=== PATIENT | female | born 1945 | race Caucasian/White ===

== ENCOUNTER → 2018-09-06 12:11 | Outpatient (CLI) | payer MEDICARE, SELFPAY ==
--- NOTE | 2018-09-06 12:14 | DI.RAD.S_ITS ---
PROCEDURE: XR HIP W PEL IF DONE LT MIN 4V INDICATIONS: left hip pain TECHNIQUE: AP pelvis with lateral view(s) of the bilateral hip(s). COMPARISON: [facility], CR, HIP COMP MIN 2VW (RT), 11/11/2011, 9:07. [facility], CT, CT LUMBAR SPINE WO CONTRAST, 08/12/2015, 11:48 AM. FINDINGS: Bones: No fractures or dislocations. Pelvic ring appears intact. No suspicious bony lesions. There are postsurgical changes with posterior fusion at L4-L5 and L5-S1. Surgical screws traverse the SI joints bilaterally. There is right hip arthroplasty with prosthesis in anatomic alignment. There is severe left hip joint degeneration. Soft tissues: The visualized bowel gas pattern is normal. No suspicious soft tissue calcifications. IMPRESSION: 1. Severe left hip joint degeneration. 2. Right total hip arthroplasty with prosthesis in anatomic alignment. 3. Post surgical changes in the lower lumbar spine. Dictated by: Jac Bernal M.D. on 09/06/2018 at 13:37 Approved by: Jac Bernal M.D. on 09/06/2018 at 13:40
== END ==
PROVIDERS: Visit Provider Physical Medicine & Rehabilitation
DX: M25.552 Pain in left hip (principal); M16.12 Unilateral primary osteoarthritis, left hip; Z96.641 Presence of right artificial hip joint; Z98.1 Arthrodesis status
CPT/HCPCS: 20611; 73522; 99213; J0702

== ENCOUNTER → 2020-04-28 07:59 | Outpatient (CLI) | payer MEDICARE, OTHER, SELFPAY ==
--- NOTE | 2020-04-28 08:01 | DI.RAD.S_ITS ---
PROCEDURE: XR HIP W PEL IF DONE LT MIN 4V INDICATIONS: left hip djd TECHNIQUE: AP pelvis and lateral view of the bilateral hips acquired. COMPARISON: [facility], CR, XR HIP W PEL IF DONE GEE 3TO4V, 09/06/2018, 12:18. FINDINGS: Bones: Patient is status post right hip arthroplasty, with hardware components in expected positions. The right hip joint appears congruent. The visualized bony structures appear intact. At the left hip there has been progression of degenerative hip joint osteoarthritis with a slight degree of additional joint space narrowing from the comparison study in August of 2018. Stable appearing partially visualized fusion devices extending across the lower lumbosacral spine and into the pelvis, with a fracture of the vertical victoriano between the L4 and L5 pedicle screw hubs on the left and at the upper margin of the vertical victoriano at that level on the right. These bilateral victoriano fractures have been previously present. Soft tissues: Overlying postoperative changes are noted. No suspicious soft tissue densities. IMPRESSION: Stable appearing postoperative changes of right total hip arthroplasty, interval mild worsening of moderately severe left hip joint osteoarthritis from 2019. Vertical fixation rods over the lower lumbosacral spine and pelvis are each fractured, but nondisplaced with reference to the 2019 study when they also were fractured. Dictated by: Barrett Davenport M.D. on 04/28/2020 at 9:13 Approved by: Barrett Davenport M.D. on 04/28/2020 at 9:17
== END ==
PROVIDERS: Referring Provider Physical Medicine & Rehabilitation; Visit Provider Physical Medicine & Rehabilitation
DX: M16.12 Unilateral primary osteoarthritis, left hip (principal); T84.216D Breakdown (mechanical) of internal fixation device of vertebrae, subsequent encounter; Z96.641 Presence of right artificial hip joint
CPT/HCPCS: 20611; 73522; 99214; J1040